=== PATIENT | male | born 1995 | race Caucasian/White ===

== ENCOUNTER → 2023-12-15 | Outpatient (CLI) | payer OTHER ==
[~2023-12-15] MED LIST: Iohexol 300 - 10 ML VIAL ONE; Lidocaine PF 2% (20 MG/ML) 2 ML VIAL ONE
== END ==
LOC: MHCPAIN 09:49
DX: M54.12 Radiculopathy, cervical region (principal)
CPT/HCPCS: J1100; Q9967

== ENCOUNTER → 2024-01-02 | Outpatient (CLI) | payer OTHER | LOC: MHCPAIN 10:25 | DX: M54.12 Radiculopathy, cervical region (principal); M54.14 Radiculopathy, thoracic region; M51.24 Other intervertebral disc displacement, thoracic region; M50.20 Other cervical disc displacement, unspecified cervical region; M47.812 Spondylosis without myelopathy or radiculopathy, cervical region | CPT/HCPCS: G0463 ==

== ENCOUNTER → 2024-01-05 | Outpatient (CLI) | payer OTHER | LOC: MHCPAIN 10:46 | DX: M47.812 Spondylosis without myelopathy or radiculopathy, cervical region (principal); M54.12 Radiculopathy, cervical region; M54.2 Cervicalgia | CPT/HCPCS: J1010; Q9967 ==